=== PATIENT | female | born 1990 | race Caucasian/White ===

== ENCOUNTER 2018-06-04 21:51 | Emergency (ER) | payer SELFPAY ==
[~2018-06-04] VITALS: Ht 167.6 cm; Wt 58.0 kg
[2018-06-04 21:55] VITALS: BP 127/58
== END 2018-06-05 02:50 | disposition left against medical advice (07) ==
LOC: ER 21:51
DX: Z53.21 Procedure and treatment not carried out due to patient leaving prior to being seen by health care provider (principal)